=== PATIENT | female | born 1965 | race Caucasian/White ===

== ENCOUNTER → 2016-09-18 | Outpatient (CLI) | payer OTHER ==
[2016-03-13 12:40] VITALS: BP 146/78
[~2016-09-18] MED LIST: BUPR100T6 PO; LORA0.5T96 PO; SERT100T PO
--- NOTE | 2016-09-18 10:14 | RAD ---
Pelvic ultrasound, 09/18/2016: History: Postmenopausal bleeding Transabdominal and transvaginal scans were obtained. The uterus measures 8.6 x 5.2 x 4.0 cm. The central uterine echocomplex is generally thin. In the fundal region it measures 4-5 mm in greatest AP diameter. The myometrium is mildly heterogeneous. There appears to be a 1.7 cm relatively isoechoic nodule within the myometrium laterally on the right. There is a slightly hypoechoic 1.3 cm nodule seen in the myometrium posteriorly on the right. These are probably small fibroids. The ovaries are of normal size. No adnexal mass is seen. No free fluid is evident in the pelvis. IMPRESSION: 1. Two small myometrial nodules are probably fibroids. 2. The pelvic ultrasound is otherwise unremarkable.
== END | disposition home or self-care (01) ==
LOC: US 08:36
PROVIDERS: ATTEND Specialist
DX: N95.0 Postmenopausal bleeding (principal); D25.9 Leiomyoma of uterus, unspecified
CPT/HCPCS: 76830; 76856

== ENCOUNTER → 2016-11-24 | Outpatient (CLI) | payer OTHER ==
[2016-03-13 12:40] VITALS: BP 146/78
[2016-11-25 03:08] LABS: ESTRADIOL LEVEL 62.3 pg/mL (.); LUTEINIZING HORMONE 32.7 mIU/mL (.)
== END | disposition home or self-care (01) ==
LOC: LAB 15:04
PROVIDERS: ATTEND Obstetrics & Gynecology
DX: N95.0 Postmenopausal bleeding (principal)
CPT/HCPCS: 36415; 82670; 83001; 83002

== ENCOUNTER → 2017-06-02 | Outpatient (CLI) | payer OTHER ==
[2016-03-13 12:40] VITALS: BP 146/78
[~2017-06-02] MED LIST changes: -SERT100T PO; +SERT20OR PO
--- NOTE | 2017-06-02 10:40 | RAD ---
EXAM: CHEST 2 VIEWS History: Cough COMPARISON: 06/11/2015 TECHNIQUE: PA and lateral chest radiographs FINDINGS: The cardiomediastinal silhouette is within normal limits. The lungs are clear bilaterally. The costophrenic sulci are clear and well demarcated bilaterally. IMPRESSION: No radiographic evidence of an acute cardiopulmonary abnormality.
[2017-06-02 11:29] LABS: BASO % 1 % (0-3); EOS # 0.2 x10^3/uL (0.0-0.7); EOS % 5 % (0-3); HEMOGLOBIN 13.8 g/dL (12.0-15.5); LYMPH # 1.7 x10^3/uL (1.0-4.8); LYMPH % 39 % (24-48); MEAN CORPUSCULAR HEMOGLOBIN 30 pg (25-35); MEAN CORPUSCULAR HGB CONC 33 g/dL (31-37); MEAN CORPUSCULAR VOLUME 91 fL (79-100); MONO # 0.6 x10^3/uL (0.0-1.1); MONO % 13 % (0-9); NEUT # 1.9 x10^3uL (1.8-7.7); NEUT % 43 % (31-73); PLATELET COUNT 142 x10^3/uL (140-400); RED BLOOD COUNT 4.63 x10^6/uL (3.50-5.40); RED CELL DISTRIBUTION WIDTH 13.4 % (11.5-14.5); WHITE BLOOD COUNT 4.3 x10^3/uL (4.0-11.0)
[2017-06-02 11:59] LABS: INFLUENZA A PATIENT NEGATIVE (NEGATIVE); INFLUENZA B PATIENT NEGATIVE (NEGATIVE)
== END | disposition home or self-care (01) ==
LOC: LAB 10:12
PROVIDERS: ATTEND Family Medicine
DX: R50.9 Fever, unspecified (principal); R05 Cough; E03.9 Hypothyroidism, unspecified; F17.200 Nicotine dependence, unspecified, uncomplicated
CPT/HCPCS: 36415; 71046; 85025; 87804

== ENCOUNTER 2018-01-09 03:02 | Emergency (ER) | payer OTHER ==
[~2018-01-09] VITALS: Ht 165.1 cm; Wt 68.0 kg
[~2018-01-09 03:02] MED LIST changes: +SERT100T PO; -SERT20OR PO
--- NOTE | 2018-01-09 03:04 | ED.ADGEN ---
Past History Past Medical History: Anxiety, Arthritis, Depression, Hypothyroid, Other Past Surgical History: Other Alcohol Use: Occasionally Drug Use: None Adult General Chief Complaint Chief Complaint ".. Two days ago... I had onset of marked pain ... in this Rt. arm.. and hand.. 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 hand and arm. Pt. rated pain more than 8.. but took some ibuprofen and tylenol, now rates pain 4/10. Pain and discomfort has been constant the last two days. Onset was acute. No specific hx of trauma or injury. No prior similar presentation. Pt. does smoke , but is generally healthy. No recent travel. No specific ill contacts, but does work on [facility] [facility] [employer] [facility] unit. Pt. is right hand dominate. Review of past CT of cervical show multilevel DJD, Neural Foraminal narrowing and some central canal narrowing. Review of Systems Review of Systems Constitutional: Denies fever or chills [] Eyes: Denies change in visual acuity, redness, or eye pain [] HENT: Denies nasal congestion or sore throat [] Respiratory: Denies cough or shortness of breath [] Cardiovascular: No additional information not addressed in HPI [] GI: Denies abdominal pain, nausea, vomiting, bloody stools or diarrhea [] : Denies dysuria or hematuria [] Musculoskeletal: Denies back pain or joint pain []Complaints of Rt. hand and arm pain. Integument: Denies rash or skin lesions [] Neurologic: Denies headache, focal weakness or sensory changes [] Endocrine: Denies polyuria or polydipsia [] All other systems were reviewed and found to be within normal limits, except as documented in this note. Family History Family History Mother had MA age 60+ range Current Medications Current Medications Current Medications Medications (Trade) Dose Ordered Sig/Randell Start Time Stop Time Status Last Admin Dose Admin Aspirin (Selina Aspirin) 325 mg 1X ONCE 01/09/18 04:00 01/09/18 04:01 DC 01/09/18 03:56 325 MG Ketorolac Tromethamine (Toradol 30mg Vial) 30 mg 1X ONCE 01/09/18 03:30 01/09/18 03:32 DC 01/09/18 03:56 30 MG Lactated Ringer's 1,000 ml @ 1,000 mls/hr Q1H 01/09/18 03:30 01/09/18 04:29 DC 01/09/18 03:56 1,000 MLS/HR Methylprednisolone Acetate (DEPO-Medrol IM) 40 mg 1X ONCE 01/09/18 05:45 01/09/18 05:46 DC 01/09/18 05:38 40 MG Allergies Allergies Allergies Coded Allergies Type Severity Reaction Last Updated Verified No Known Drug Allergies 11/01/14 No Physical Exam Physical Exam Constitutional: Well developed, well nourished,moderately acute distress, non- toxic appearance. [] HENT: Normocephalic, atraumatic, bilateral external ears normal, oropharynx moist, no oral exudates, nose normal. [] Eyes: PERRLA, EOMI, conjunctiva normal, no discharge. [] Neck: Normal range of motion, no tenderness, supple, no stridor. [] Cardiovascular:Heart rate regular rhythm, no murmur [] Lungs & Thorax: Bilateral breath sounds equal at apex with scattered wheezes on auscultation [] Abdomen: Bowel sounds normal, soft, no tenderness, no masses, no pulsatile masses. [] Skin: Warm, dry, no erythema, no rash. [] Back: No tenderness, no CVA tenderness. [] Extremities: No tenderness, no cyanosis, no clubbing, ROM intact, no edema. [] Except finding in Rt. arm as per HPI. Pt. Nic test shows collateral artery flow to Rt. hand. No cording appreciated in Rt. arm. Neurologic: Alert and oriented X 3, normal motor function, , no focal deficits noted. DTR's 2+ Patella and brachial. Has decrease vib. 128 in Rt.hand. AC> BC with no lateralization. [] Psychologic: Affect anxious, judgement normal, mood normal. [] Current Patient Data Vital Signs Vital Signs Date Time Temp Pulse Resp B/P (MAP) Pulse Ox O2 Delivery O2 Flow Rate FiO2 01/09/18 05:00 65 19 150/96 (114) 99 Room Air 01/09/18 03:20 98.1 Lab Results Laboratory Tests Test 01/09/18 03:40 01/09/18 04:25 White Blood Count 8.3 x10^3/uL (4.0-11.0) Red Blood Count 4.55 x10^6/uL (3.50-5.40) Hemoglobin 13.6 g/dL (12.0-15.5) Hematocrit 41.0 % (36.0-47.0) Mean Corpuscular Volume 90 fL (79-100) Mean Corpuscular Hemoglobin 30 pg (25-35) Mean Corpuscular Hemoglobin Concent 33 g/dL (31-37) Red Cell Distribution Width 14.0 % (11.5-14.5) Platelet Count 175 x10^3/uL (140-400) Neutrophils (%) (Auto) 45 % (31-73) Lymphocytes (%) (Auto) 43 % (24-48) Monocytes (%) (Auto) 8 % (0-9) Eosinophils (%) (Auto) 4 % (0-3) H Basophils (%) (Auto) 1 % (0-3) Neutrophils # (Auto) 3.7 x10^3uL (1.8-7.7) Lymphocytes # (Auto) 3.5 x10^3/uL (1.0-4.8) Monocytes # (Auto) 0.6 x10^3/uL (0.0-1.1) Eosinophils # (Auto) 0.4 x10^3/uL (0.0-0.7) Basophils # (Auto) 0.1 x10^3/uL (0.0-0.2) Erythrocyte Sedimentation Rate 4 (0-25) Prothrombin Time 9.8 SEC (9.4-11.4) Prothrombin Time INR 1.0 (0.9-1.1) PTT 26 SEC (23-33) D-Dimer (Yasmin) 0.30 mg/L (0.00-0.50) Sodium Level 141 mmol/L (136-145) Potassium Level 3.6 mmol/L (3.5-5.1) Chloride Level 106 mmol/L (98-107) Carbon Dioxide Level 27 mmol/L (21-32) Anion Gap 8 (6-14) Blood Urea Nitrogen 17 mg/dL (7-20) Creatinine 0.8 mg/dL (0.6-1.0) Estimated GFR (Cockcroft-Gault) 75.3 Glucose Level 92 mg/dL (70-99) Calcium Level 8.7 mg/dL (8.5-10.1) Magnesium Level 2.1 mg/dL (1.8-2.4) Total Bilirubin 0.3 mg/dL (0.2-1.0) Direct Bilirubin 0.1 mg/dL (0.0-0.2) Aspartate Amino Transferase (AST) 20 U/L (15-37) Alanine Aminotransferase (ALT) 26 U/L (14-59) Alkaline Phosphatase 108 U/L (46-116) Creatine Kinase 104 U/L (26-192) Creatine Kinase MB (Mass) 0.9 ng/mL (0.0-3.6) Creatine Kinase MB Relative Index 0.9 % (0-4) Troponin I Quantitative < 0.017 ng/mL (0-0.055) ZV-Hda-W-Type Natriuretic Peptide 32 pg/mL (0-124) Total Protein 6.6 g/dL (6.4-8.2) Albumin 3.6 g/dL (3.4-5.0) Lipase 127 U/L (73-393) Urine Collection Type Unknown Urine Color Straw Urine Clarity Clear Urine pH 6.5 Urine Specific [place] 1.010 Urine Protein Neg (NEG-TRACE) Urine Glucose (UA) Neg mg/dL (NEG) Urine Ketones (Stick) Neg mg/dL (NEG) Urine Blood Trace (NEG) Urine Nitrite Neg (NEG) Urine Bilirubin Neg (NEG) Urine Urobilinogen Dipstick 0.2 mg/dL (0.2 mg/dL) Urine Leukocyte Esterase Trace (NEG) Urine RBC Occ /HPF (0-2) Urine WBC 1-4 /HPF (0-4) Urine Squamous Epithelial Cells Few /LPF Urine Bacteria Few /HPF (0-FEW) Urine Opiates Screen Neg (NEG) Urine Methadone Screen Neg (NEG) Urine Barbiturates Neg (NEG) Urine Phencyclidine Screen Neg (NEG) Urine Amphetamine/Methamphetamine Neg (NEG) Urine Benzodiazepines Screen Neg (NEG) Urine Cocaine Screen Neg (NEG) Urine Cannabinoids Screen Neg (NEG) Urine Ethyl Alcohol Neg (NEG) EKG EKG My interpretation of EKG shows a sinus rhythm at 64 bpm. She does have some mild leftward axis and nonspecific anterior septal changes. Findings acute STEMI of contralateral changes.[] Radiology/Procedures Radiology/Procedures My interpretation of chest x-ray shows no acute cardiopulmonary findings.[] CT of neck as compared to 2015 CT shows new multilevel degenerative changes. Most severe at C4-C7 with central canal and neural foraminal stenosis. CT of head shows no shift, mass, edema, bleed, or fracture. See formal report when available. Course & Med Decision Making Course & Med Decision Making Pertinent Labs and Imaging studies reviewed. (See chart for details). Keep follow-up with Dr. Nick. Would recommend follow-up with orthopedics or neurosurgery for evaluation of suspected cervical impingement. Take Tylenol and ibuprofen for pain. Take Vicoprofen for marked pain. Trial of Flexeril may be helpful for muscle spasms. Must follow-up. [] Final Impression Final Impression 1. Rt. Arm / hand pain and numbness x 48hrs. 2. HTN 3. Tobacco use 4. 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 DERRELL CHAMPION MD Jan 09, 2018 03:04
[2018-01-09] MEDS ORDERED: IV RINGERS SOLUTION,LACTATED 1,000 ML IV SCH (03:30)
[2018-01-09] MEDS ORDERED: KETOROLAC 30 MG/ML VIAL. IV ONE (03:30)
--- NOTE | 2018-01-09 03:32 | EKG ---
[address] [address] Test Date: 2018-01-09 Test Time: 03:28:35 Pat Name: ALEXY SHAH Department: Room: Gender: F Insurance Claims Clerk: : 1965 Requested By: DERRELL CHAMPION Order Number: [id number] Reading MD: Lyle Whitaker Measurements Intervals [place] Rate: 64 P: 49 SC: 178 QRS: -17 QRSD: 94 T: 31 QT: 416 QTc: 433 Interpretive Statements SINUS RHYTHM LEFTWARD AXIS Electronically Signed On 01-11-2018 11:14:08 CDT by Lyle Whitaker
[2018-01-09] MEDS ORDERED: ASPIRIN 325 MG TABLET PO ONE (04:00)
[2018-01-09 04:42] LABS: BASO # 0.1 x10^3/uL (0.0-0.2); BASO % 1 % (0-3); EOS # 0.4 x10^3/uL (0.0-0.7); EOS % 4 % (0-3); HEMOGLOBIN 13.6 g/dL (12.0-15.5); LYMPH # 3.5 x10^3/uL (1.0-4.8); LYMPH % 43 % (24-48); MEAN CORPUSCULAR HEMOGLOBIN 30 pg (25-35); MEAN CORPUSCULAR HGB CONC 33 g/dL (31-37); MEAN CORPUSCULAR VOLUME 90 fL (79-100); MONO # 0.6 x10^3/uL (0.0-1.1); MONO % 8 % (0-9); NEUT # 3.7 x10^3uL (1.8-7.7); NEUT % 45 % (31-73); PLATELET COUNT 175 x10^3/uL (140-400); RED BLOOD COUNT 4.55 x10^6/uL (3.50-5.40); WHITE BLOOD COUNT 8.3 x10^3/uL (4.0-11.0)
[2018-01-09 04:45] LABS: ALBUMIN 3.6 g/dL (3.4-5.0); CALCIUM 8.7 mg/dL (8.5-10.1); CREATININE 0.8 mg/dL (0.6-1.0); DIRECT BILIRUBIN 0.1 mg/dL (0.0-0.2); GFR 75.3; MAGNESIUM 2.1 mg/dL (1.8-2.4); POTASSIUM 3.6 mmol/L (3.5-5.1); TOTAL BILIRUBIN 0.3 mg/dL (0.2-1.0); TOTAL PROTEIN 6.6 g/dL (6.4-8.2)
[2018-01-09 04:58] LABS: CLARITY,URINE CLEAR; COLOR,URINE STRAW
[2018-01-09 04:59] LABS: BACTERIA,URINE FEW /HPF (0-FEW); BARBITURATES NEG (NEG); BENZODIAZEPINES NEG (NEG); BILIRUBIN,URINE NEG (NEG); CANNABINOIDS NEG (NEG); COCAINE NEG (NEG); GLUCOSE,URINE NEG (NEG); METHADONE NEG (NEG); NITRITE,URINE NEG (NEG); OPIATES NEG (NEG); PHENCYCLIDINE NEG (NEG); RBC,URINE OCC /HPF (0-2); SQUAMOUS EPITHELIAL CELL,UR FEW /LPF; UROBILINOGEN,URINE 0.2 mg/dL (0.2 mg/dL)
[2018-01-09 05:00] VITALS: BP 150/96
[2018-01-09 05:01] LABS: AMPHETAMINE/METHAMPHETAMINE NEG (NEG)
--- NOTE | 2018-01-09 05:14 | RAD ---
INDICATION: Right arm and hand numbness and pain COMPARISON: October 2014 TECHNIQUE: Axial CT images obtained through the head and cervical spine without intravenous contrast. Coronal and sagittal reformats processed of cervical spine. One or more of the following individualized dose reduction techniques were utilized for this examination: 1. Automated exposure control; 2. Adjustment of the mA and/or kV according to patient size; 3. Use of iterative reconstruction technique. FINDINGS: Head: No intracranial hemorrhage. No midline shift. Basal cisterns patents. Ventricles and sulci are within normal limits. No acute osseous abnormality. Orbits and paranasal sinuses unremarkable. Cervical: No definite acute fracture. No dislocation. No evidence of perivertebral hematoma. Grade 1 anterolisthesis of C7 on T1 and T1 on T2. IMPRESSION: 1. No acute intracranial hemorrhage. 2. No definite acute fracture or dislocation of the cervical spine. 3. Multilevel degenerative changes throughout the cervical spine with osteophyte formation at the vertebral body endplates as well as facet and uncovertebral hypertrophy contributing to multilevel central canal and neural foraminal stenosis. This appears most severe from the C4-C7 levels. If the patient has neurologic symptoms referrable to these levels it may be helpful to obtain a follow-up MRI of the cervical spine to assess for impingement of the nerve roots given that some of the regions of neural foraminal stenosis appears severe. Electronically signed by: Marcus Camara MD (01/09/2018 5:11 AM) [id number]
[2018-01-09] MEDS ORDERED: HYDR-79 PO (05:43)
[2018-01-09] MEDS ORDERED: CYCL-331 PO (05:43)
[2018-01-09] MEDS ORDERED: methylPREDNISolone ACETATE 40 MG/ML VIAL. IM ONE (05:45)
[2018-01-09 05:48] LABS: SEDIMENTATION RATE 4 (0-25)
--- NOTE | 2018-01-09 10:38 | RAD ---
Chest, 2 views, 01/09/2018: History: Right arm pain The heart size and pulmonary vascularity are normal. There is minimal linear atelectasis or scarring in the right base. The lungs are otherwise clear. There is no evidence of pleural fluid. IMPRESSION: Minimal right basilar linear atelectasis or scarring.
== END 2018-01-09 05:55 | disposition home or self-care (01) ==
LOC: ER 03:02
DX: M79.641 Pain in right hand (principal); M79.601 Pain in right arm; R20.0 Anesthesia of skin; M47.892 Other spondylosis, cervical region; I10 Essential (primary) hypertension; F41.9 Anxiety disorder, unspecified; M19.90 Unspecified osteoarthritis, unspecified site; F32.9 Major depressive disorder, single episode, unspecified; E03.9 Hypothyroidism, unspecified; Z72.0 Tobacco use
CPT/HCPCS: 36415; 70450; 71046; 72125; 80048; 80076; 80307; 81001; 82553; 83690; 83735; 83880; 84443; 84484; 85025; 85379; 85610; 85651; 85730; 87086; 93005; 96372; 96374; 99285; J1030; J1885; J7120; G0479

== ENCOUNTER → 2018-02-17 | Outpatient (CLI) | payer OTHER ==
[~2018-02-17] MED LIST changes: +CYCL-331 PO; +HYDR-79 PO
[2018-02-18 16:36] LABS: THYROXINE 4.4 ug/dL (4.5-12.0)
== END | disposition home or self-care (01) ==
LOC: LAB 15:14
PROVIDERS: ATTEND Internal Medicine
DX: R94.6 Abnormal results of thyroid function studies (principal)
CPT/HCPCS: 36415; 84436; 84439; 84480

== ENCOUNTER 2018-03-07 09:23 | Emergency (ER) | payer OTHER ==
[~2018-03-07] VITALS: Ht 165.1 cm; Wt 74.8 kg
[2018-03-07 09:30] VITALS: BP 154/95
--- NOTE | 2018-03-07 10:08 | PHYS DOC ---
Past History Past Medical History: Anxiety, Arthritis, Depression, Hypothyroid, Other Past Surgical History: Other Alcohol Use: Occasionally Drug Use: None Adult General Chief Complaint Chief Complaint: LACERATION/AVULSION HPI HPI 52-year-old female presents with chin laceration after a fall. The patient without walking her dog when another dog in the neighborhood jumped a fence and intact. Her dog went to chased the other dog away and drug the patient across the street. The patient has minor abrasions on her knees and a 1/2 cm laceration on her chin. Her chin began to bleed and she looked in the mirror realized that probably needed stitches. Patient denies loss of consciousness. She denies dizziness or headache. She is concerned about a laceration to her chin. Her tetanus is up-to-date as she got one 1 year ago. Review of Systems Review of Systems Constitutional: Denies fever or chills [] Eyes: Denies change in visual acuity, redness, or eye pain [] HENT: Denies nasal congestion or sore throat [] Respiratory: Denies cough or shortness of breath [] Cardiovascular: No additional information not addressed in HPI [] GI: Denies abdominal pain, nausea, vomiting, bloody stools or diarrhea [] : Denies dysuria or hematuria [] Musculoskeletal: Denies back pain or joint pain [] Integument: Abrasions, laceration[] Neurologic: Denies headache, focal weakness or sensory changes [] Endocrine: Denies polyuria or polydipsia [] All other systems were reviewed and found to be within normal limits, except as documented in this note. Allergies Allergies Allergies Coded Allergies Type Severity Reaction Last Updated Verified No Known Drug Allergies 11/01/14 No Physical Exam Physical Exam Constitutional: Well developed, well nourished, no acute distress, non-toxic appearance. [] HENT: Normocephalic, atraumatic, bilateral external ears normal, oropharynx moist, no oral exudates, nose normal. [] Eyes: PERRLA, EOMI, conjunctiva normal, no discharge. [] Neck: Normal range of motion, no tenderness, supple, no stridor. [] Cardiovascular:Heart rate regular rhythm, no murmur [] Lungs & Thorax: Bilateral breath sounds clear to auscultation [] Abdomen: Bowel sounds normal, soft, no tenderness, no masses, no pulsatile masses. [] Skin: Superficial abrasions to bilateral knees. 1.5 cm linear laceration to the chin[] Back: No tenderness, no CVA tenderness. [] Extremities: No tenderness, no cyanosis, no clubbing, ROM intact, no edema. [] Neurologic: Alert and oriented X 3, normal motor function, normal sensory function, no focal deficits noted. [] Psychologic: Affect normal, judgement normal, mood normal. [] EKG EKG [] Radiology/Procedures Radiology/Procedures [] Course & Med Decision Making Course & Med Decision Making Pertinent Labs and Imaging studies reviewed. (See chart for details) The patient had a laceration to her chin from her fall. I was able to repair it with sutures. See note below for more details. There were no complications. The patient's tetanus is up-to-date. She is stable for discharge at this time. [] Dragon Disclaimer Dragon Disclaimer This electronic medical record was generated, in whole or in part, using a voice recognition dictation system. Laceration Repair Lac Repair Indication: [1/2 cm linear laceration of the chin] Procedure: Verbal consent was obtained from the patient for suture repair of her chin. Wound was cleansed with saline under pressure. No foreign objects were found. The skin was anesthetized with 1% lidocaine. A total of 1.5 mL was used. I repaired the laceration was 2 interrupted 5-0 Ethilon sutures. There was good skin approximation. Hemostasis was achieved. Total repaired wound length: 1.5 cm. Other Items: None The patient tolerated the procedure well Complications: None. Departure Departure: Referrals: JAZ GAMEZ MD (PCP) MAUREEN BOURNE DO Mar 07, 2018 10:08
== END 2018-03-07 10:20 | disposition home or self-care (01) ==
LOC: ER 09:23
DX: S01.81XA Laceration without foreign body of other part of head, initial encounter (principal); S80.212A Abrasion, left knee, initial encounter; S80.211A Abrasion, right knee, initial encounter; F41.9 Anxiety disorder, unspecified; M19.90 Unspecified osteoarthritis, unspecified site; F32.9 Major depressive disorder, single episode, unspecified; E03.9 Hypothyroidism, unspecified; W18.30XA Fall on same level, unspecified, initial encounter; Y93.K1 Activity, walking an animal; Y92.89 Other specified places as the place of occurrence of the external cause; Y99.8 Other external cause status
CPT/HCPCS: 12011; 99283

== ENCOUNTER → 2018-04-22 | Outpatient (CLI) | payer OTHER ==
[~2018-04-22] MED LIST changes: +HYDR-1179 PO; -HYDR-79 PO
[2018-04-22 18:06] LABS: FREE T4 1.01 ng/dL (0.76-1.46); THYROID STIM HORMONE (TSH) 0.654 uIU/mL (0.358-3.740)
== END | disposition home or self-care (01) ==
LOC: LAB 11:24
PROVIDERS: ATTEND Psychiatry & Neurology Psychiatry
DX: E03.9 Hypothyroidism, unspecified (principal)
CPT/HCPCS: 84439; 84443; 84481

== ENCOUNTER → 2018-04-30 | Outpatient (CLI) | payer OTHER ==
[2018-04-30 14:53] LABS: BASO % 1 % (0-3); EOS # 0.1 x10^3/uL (0.0-0.7); EOS % 1 % (0-3); HEMATOCRIT 40.5 % (36.0-47.0); HEMOGLOBIN 13.1 g/dL (12.0-15.5); LYMPH # 1.6 x10^3/uL (1.0-4.8); LYMPH % 29 % (24-48); MEAN CORPUSCULAR HEMOGLOBIN 30 pg (25-35); MEAN CORPUSCULAR HGB CONC 32 g/dL (31-37); MEAN CORPUSCULAR VOLUME 92 fL (79-100); MONO # 0.6 x10^3/uL (0.0-1.1); MONO % 12 % (0-9); NEUT # 3.1 x10^3uL (1.8-7.7); NEUT % 58 % (31-73); PLATELET COUNT 186 x10^3/uL (140-400); RED BLOOD COUNT 4.42 x10^6/uL (3.50-5.40); WHITE BLOOD COUNT 5.4 x10^3/uL (4.0-11.0)
[2018-04-30 14:59] LABS: ALBUMIN 3.3 g/dL (3.4-5.0); ALBUMIN/GLOBULIN RATIO 1.1 (1.0-1.7); CREATININE 0.9 mg/dL (0.6-1.0); GFR 65.8; POTASSIUM 3.9 mmol/L (3.5-5.1); TOTAL BILIRUBIN 0.3 mg/dL (0.2-1.0); TOTAL PROTEIN 6.4 g/dL (6.4-8.2)
--- NOTE | 2018-04-30 17:12 | RAD ---
ABDOMEN LTD History: Right upper quadrant pain Comparison: No FINDINGS: Multiple sonographic images of the abdomen are submitted. There is no abnormality of the visualized pancreas. No focal abnormality is demonstrated of the liver. Hepatic echotexture is within normal limits. Gallbladder is present without intraluminal abnormality, wall thickening, pericholecystic fluid. Right kidney measured 10.2 x 4.4 x 4.1 cm, no hydronephrosis. Common bile duct is within normal limits at 0.5 cm. There is segmental visualization of the inferior vena cava. Impression: 1. No significant abnormality is demonstrated. Electronically signed by: Carter Dawn MD (04/30/2018 5:08 PM) [id number]
== END | disposition home or self-care (01) ==
LOC: LAB 14:03
PROVIDERS: ATTEND Internal Medicine
DX: R10.11 Right upper quadrant pain (principal)
CPT/HCPCS: 36415; 76705; 80053; 83690; 85025

== ENCOUNTER → 2018-10-13 | Outpatient (CLI) | payer OTHER ==
--- NOTE | 2018-10-13 16:43 | RAD ---
Cervical spine, 3 views, 10/13/2018: HISTORY: Postop cervical fusion An anterior fixation plate is present attached to the C4, C5 and C6 vertebral bodies via 2 screws at each level. There are partially radiopaque disc spacers at C4-5 and C5-6. The vertebral alignment through this region appears normal. There are moderate scattered posterior marginal spurs. There are moderate degenerative changes involving the facet joints bilaterally at multiple levels. There appears to be fusion of the facet joints at C3-4. No recent fracture or subluxation is evident. IMPRESSION: 1. Status post anterior spinal fusion and instrumentation from C4 through C6. 2. Moderate multilevel degenerative change. 3. No acute bony abnormality is detected. Electronically signed by: Iron Clarke MD (10/13/2018 4:40 PM) [facility]
== END | disposition home or self-care (01) ==
LOC: DXRAD 15:41
PROVIDERS: ATTEND Neurological Surgery
DX: M47.812 Spondylosis without myelopathy or radiculopathy, cervical region (principal); M46.02 Spinal enthesopathy, cervical region; Z98.1 Arthrodesis status
CPT/HCPCS: 72040

== ENCOUNTER → 2018-11-03 | Outpatient (CLI) | payer OTHER ==
[2018-11-04 18:18] LABS: FREE T4 0.68 ng/dL (0.76-1.46); THYROID STIM HORMONE (TSH) 1.304 uIU/mL (0.358-3.740)
== END | disposition home or self-care (01) ==
LOC: LAB 15:22
PROVIDERS: ATTEND Psychiatry & Neurology Psychiatry
DX: E03.9 Hypothyroidism, unspecified (principal)
CPT/HCPCS: 84439; 84443; 84481

== ENCOUNTER 2018-12-13 03:40 | Emergency (ER) | payer OTHER ==
[~2018-12-13] VITALS: Ht 165.1 cm; Wt 74.8 kg
[2018-12-13 03:40] VITALS: BP 149/86
--- NOTE | 2018-12-13 03:47 | ED.ADGEN ---
Past History Past Medical History: Anxiety, Arthritis, Depression, Hypertension, Hypothyroid, Other Past Surgical History: Other Alcohol Use: Occasionally Drug Use: None Adult General Chief Complaint Chief Complaint " ..I hurt my elbow...".." about two weeks ago .. in handling a patient... my elbow is still sore..." [facility] HPI Patient is a 53 year old female who presents with above hx and complaints contusion to Rt. forearm 2 weeks ago while working on the [employer] unit. Patient states contusion was 2 mid forearm on right. Distal neurovascular is intact. Pain seems to be located now in the elbow. No pain with pronation or supination. Pain is only with straightening of elbow. Patient is right-hand dominant. Capillary refill in right hand is equal to Her refill and left hand. Review of Systems Review of Systems Constitutional: Denies fever or chills [] Eyes: Denies change in visual acuity, redness, or eye pain [] HENT: Denies nasal congestion or sore throat [] Respiratory: Denies cough or shortness of breath [] Cardiovascular: No additional information not addressed in HPI [] GI: Denies abdominal pain, nausea, vomiting, bloody stools or diarrhea [] : Denies dysuria or hematuria [] Musculoskeletal: Denies back pain or joint pain []except findings of an history contusion to right elbow Integument: Denies rash or skin lesions [] Neurologic: Denies headache, focal weakness or sensory changes [] Endocrine: Denies polyuria or polydipsia [] All other systems were reviewed and found to be within normal limits, except as documented in this note. Family History Family History Noncontributory Current Medications Current Medications See nursing for home meds Allergies Allergies Allergies Coded Allergies Type Severity Reaction Last Updated Verified No Known Drug Allergies 11/01/14 No Physical Exam Physical Exam Constitutional: , no acute distress, non-toxic appearance. [] HENT: Normocephalic, atraumatic, bilateral external ears normal, oropharynx moist, no oral exudates, nose normal. [] Eyes: PERRLA, EOMI, conjunctiva normal, no discharge. [] Neck: Normal range of motion, no tenderness, supple, no stridor. Neck scar recent cervical surgery Cardiovascular:Heart rate regular rhythm, no murmur [] Lungs & Thorax: Bilateral breath sounds equal at apex auscultation [] Abdomen: Bowel sounds normal, soft, no tenderness, no masses, no pulsatile masses. [] Skin: Warm, dry, no erythema, no rash. [] Back: No tenderness, no CVA tenderness. [] Extremities: No tenderness, no cyanosis, no clubbing, ROM intact, no edema. [] Except tenderness right elbow as per history of present illness Neurologic: Alert and oriented X 3, normal motor function, normal sensory function, no focal deficits noted. [] Psychologic: Affect anxious, judgement normal, mood normal. [] Current Patient Data Vital Signs Vital Signs Date Time Temp Pulse Resp B/P (MAP) Pulse Ox O2 Delivery O2 Flow Rate FiO2 12/13/18 03:40 98.1 76 18 97 Room Air EKG EKG [] Radiology/Procedures Radiology/Procedures My interpretation of right elbow film shows no obvious dislocation or displacement fracture. [][place] [address] IMAGING REPORT Signed PATIENT: ALEXY SHAH IACCOUNT: [id number] : 1965 LOCATION: ER AGE: 53 SEX: F EXAM STATUS: DEP ER ORD. PHYSICIAN: DERRELL CHAMPION MD REASON: Injury, right elbow pain PROCEDURE: ELBOW RIGHT 3V EXAM: RIGHT ELBOW 3 VIEWS. HISTORY: Right elbow pain after injury. COMPARISON: None. FINDINGS: No fractures are identified. Joint spaces and alignment are maintained. There is no joint effusion. IMPRESSION: 1. No fracture or joint effusion. Electronically signed by: Kristopher De La Rosa MD (12/13/2018 4:56 AM) [id number] DICTATED AND SIGNED BY: ANA M DE LA ROSA MD DATE: 12/13/18 0456 CC: DERRELL CHAMPION MD; JAZ GAMEZ MD ~ Course & Med Decision Making Course & Med Decision Making Pertinent Labs and Imaging studies reviewed. (See chart for details). Follow- up work comp. Wear Aries wrap. Take Tylenol for pain. (Unable to take anti- inflammatories because of recent neck surgery) [] Final Impression Final Impression 1. Contusion 2. Sprain / Strain[] Dragon Disclaimer Dragon Disclaimer This electronic medical record was generated, in whole or in part, using a voice recognition dictation system. Dragon Disclaimer This chart was dictated in whole or in part using Voice Recognition software in a busy, high-work load, and often noisy Emergency Department environment. It may contain unintended and wholly unrecognized errors or omissions. DERRELL CHAMPION MD Dec 13, 2018 03:47
--- NOTE | 2018-12-13 04:59 | RAD ---
EXAM: RIGHT ELBOW 3 VIEWS. HISTORY: Right elbow pain after injury. COMPARISON: None. FINDINGS: No fractures are identified. Joint spaces and alignment are maintained. There is no joint effusion. IMPRESSION: 1. No fracture or joint effusion. Electronically signed by: Kristopher De La Rosa MD (12/13/2018 4:56 AM) [id number]
== END 2018-12-13 04:45 | disposition home or self-care (01) ==
LOC: ER 03:40
DX: S50.01XA Contusion of right elbow, initial encounter (principal); M19.90 Unspecified osteoarthritis, unspecified site; I10 Essential (primary) hypertension; E03.9 Hypothyroidism, unspecified; X58.XXXA Exposure to other specified factors, initial encounter; Y93.89 Activity, other specified; Y92.89 Other specified places as the place of occurrence of the external cause; Y99.8 Other external cause status
CPT/HCPCS: 73080; 99284

== ENCOUNTER → 2019-01-24 | Outpatient (CLI) | payer OTHER ==
[2019-01-24 11:42] LABS: BASO # 0.1 x10^3/uL (0.0-0.2); BASO % 1 % (0-3); EOS # 0.2 x10^3/uL (0.0-0.7); EOS % 4 % (0-3); HEMATOCRIT 42.3 % (36.0-47.0); HEMOGLOBIN 13.7 g/dL (12.0-15.5); LYMPH # 1.7 x10^3/uL (1.0-4.8); LYMPH % 31 % (24-48); MEAN CORPUSCULAR HEMOGLOBIN 29 pg (25-35); MEAN CORPUSCULAR HGB CONC 33 g/dL (31-37); MEAN CORPUSCULAR VOLUME 89 fL (79-100); MONO # 0.6 x10^3/uL (0.0-1.1); MONO % 12 % (0-9); NEUT # 2.9 x10^3uL (1.8-7.7); NEUT % 53 % (31-73); PLATELET COUNT 211 x10^3/uL (140-400); RED BLOOD COUNT 4.76 x10^6/uL (3.50-5.40); RED CELL DISTRIBUTION WIDTH 14.1 % (11.5-14.5); WHITE BLOOD COUNT 5.5 x10^3/uL (4.0-11.0)
[2019-01-24 11:48] LABS: ALBUMIN/GLOBULIN RATIO 1.2 (1.0-1.7); CALCIUM 9.3 mg/dL (8.5-10.1); CREATININE 0.9 mg/dL (0.6-1.0); GFR 65.5; POTASSIUM 3.7 mmol/L (3.5-5.1); TOTAL BILIRUBIN 0.3 mg/dL (0.2-1.0); TOTAL PROTEIN 7.3 g/dL (6.4-8.2)
[2019-01-24 14:22] LABS: THYROID STIM HORMONE (TSH) 1.228 uIU/mL (0.358-3.740)
== END | disposition home or self-care (01) ==
LOC: PMG 10:44
PROVIDERS: ATTEND Registered Nurse
DX: Z13.6 Encounter for screening for cardiovascular disorders (principal); I10 Essential (primary) hypertension; E03.9 Hypothyroidism, unspecified
CPT/HCPCS: 36415; 80053; 80061; 84439; 84443; 84481; 85025

== ENCOUNTER → 2019-04-29 | Outpatient (CLI) | payer OTHER ==
--- NOTE | 2019-04-29 17:34 | RAD ---
Examination: WRIST 2V LEFT History: Pain Comparison/Correlation: None Findings: Total 2 images of the left wrist were obtained. Advanced first carpometacarpal joint degenerative narrowing and spurring noted. Narrowing of the second metacarpal-trapezoid articulation noted. No fracture or bone destruction. Impression: Advanced degenerative change involving first and second carpometacarpal joints. Consider further imaging or neuroforaminal if occult process involving the scaphoid bone is of concern. Electronically signed by: Daniel Ron MD (04/29/2019 5:31 PM) [facility]
== END | disposition home or self-care (01) ==
LOC: DXRAD 15:51
PROVIDERS: ATTEND Registered Nurse
DX: M18.12 Unilateral primary osteoarthritis of first carpometacarpal joint, left hand (principal)
CPT/HCPCS: 73100

== ENCOUNTER → 2019-06-24 | Outpatient (CLI) | payer OTHER ==
[2019-06-25 05:07] LABS: DHEA SO4 61.3 ug/dL (41.2-243.7); ESTRADIOL LEVEL <5.0 pg/mL (.); FSH 151.6 mIU/mL (.); LUTEINIZING HORMONE 67.7 mIU/mL (.); PROGESTERONE <0.1 ng/mL (.); TESTOSTERONE TOTAL <3 ng/dL (3-41)
[2019-06-27 12:07] LABS: ESTROGEN LEVEL 92 pg/mL (.)
== END | disposition home or self-care (01) ==
LOC: LAB 13:31
PROVIDERS: ATTEND Registered Nurse
DX: R26.2 Difficulty in walking, not elsewhere classified (principal)
CPT/HCPCS: 36415; 82627; 82670; 82672; 83001; 83002; 84144; 84403; 84443

== ENCOUNTER 2019-08-31 13:30 | Emergency (ER) | payer OTHER ==
[~2019-08-31] VITALS: Ht 165.1 cm; Wt 69.5 kg
[2019-08-31] MEDS ORDERED: IV NORMAL SALINE 1,000ML 1,000 ML IV SCH (13:41)
[2019-08-31] MEDS ORDERED: ASPIRIN CHEWABLE 81 MG TABLET. PO ONE (13:45)
[2019-08-31 13:58] LABS: BASO % 1 % (0-3); EOS # 0.2 x10^3/uL (0.0-0.7); EOS % 3 % (0-3); HEMATOCRIT 40.1 % (36.0-47.0); LYMPH # 1.6 x10^3/uL (1.0-4.8); LYMPH % 26 % (24-48); MEAN CORPUSCULAR HEMOGLOBIN 29 pg (25-35); MEAN CORPUSCULAR HGB CONC 32 g/dL (31-37); MEAN CORPUSCULAR VOLUME 89 fL (79-100); MONO # 0.5 x10^3/uL (0.0-1.1); MONO % 8 % (0-9); NEUT # 3.9 x10^3uL (1.8-7.7); NEUT % 63 % (31-73); PLATELET COUNT 196 x10^3/uL (140-400); RED BLOOD COUNT 4.51 x10^6/uL (3.50-5.40); RED CELL DISTRIBUTION WIDTH 14.2 % (11.5-14.5); WHITE BLOOD COUNT 6.2 x10^3/uL (4.0-11.0)
[2019-08-31 14:04] LABS: CREATININE 0.7 mg/dL (0.6-1.0); GFR 87.5; POTASSIUM 3.6 mmol/L (3.5-5.1)
--- NOTE | 2019-08-31 14:06 | RAD ---
PORTABLE CHEST 1V History: Chest pain Comparison: June 02, 2017 Findings: No consolidation or pleural effusion. Normal heart size. No pneumothorax. Postop changes lower cervical spine. Impression: 1. No acute cardiopulmonary process. Electronically signed by: Etienne Wallace DO (08/31/2019 2:03 PM) [id number]
--- NOTE | 2019-08-31 14:18 | EKG ---
[address] [address] Test Date: 2019-08-31 Test Time: 13:41:26 Pat Name: ALEXY SHAH Department: Room: Gender: F [employer]: : 1965 Requested By: CHERYL ALFARO Order Number: [id number] Reading MD: Otis Garcia MD Measurements Intervals [place] Rate: 94 P: 45 [place]: 146 QRS: -8 QRSD: 102 T: 51 QT: 370 QTc: 463 Interpretive Statements SINUS RHYTHM NON-SPECIFIC ST/T CHANGES Electronically Signed On 09-01-2019 12:01:41 CDT by Otis Garcia MD
[2019-08-31 14:20] LABS: ALBUMIN/GLOBULIN RATIO 1.4 (1.0-1.7); TOTAL BILIRUBIN 0.3 mg/dL (0.2-1.0); TOTAL PROTEIN 6.8 g/dL (6.4-8.2)
--- NOTE | 2019-08-31 14:20 | PHYS DOC ---
Past History Past Medical History: Anxiety, Arthritis, Depression, Hypertension, Hypothyroid, Other Past Surgical History: Other Alcohol Use: Occasionally Drug Use: None General Adult EDM: Chief Complaint: CHEST PAIN HPI: HPI: Patient is a 53 year old female who presents with complaint of chest pain and shortness of breath. The patient states that her symptoms started suddenly. 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 She states while on rounds she started to feel difficulty breathing. This happened suddenly. She states that she started to become lightheaded and dizzy when this occurred. Notes that she is still feeling shortness of breath and feeling tightness currently in her chest. She denies pain but does admit that the chest tightness feels in the middle of her chest. No history of similar symptoms. Does have history of hypertension but no known history of cardiac disease. Family history positive for coronary artery disease in mother. Has not taken any medications since onset. Takes amlodipine for blood pressure. Has not missed any doses. Review of Systems: Review of Systems: Constitutional: Denies fever or chills Eyes: Denies change in visual acuity HENT: Denies nasal congestion or sore throat Respiratory: Shortness of breath Cardiovascular: Chest pressure GI: Denies abdominal pain, nausea, vomiting, bloody stools or diarrhea : Denies dysuria Musculoskeletal: Denies back pain or joint pain Integument: Denies rash Neurologic: Dizziness and lightheadedness, denies focal weakness Endocrine: Denies polyuria or polydipsia Lymphatic: Denies swollen glands Heart Score: HEART Score for Chest Pain: HEART Score for Chest Pain Response (Comments) Value History Slighlty/Non-Suspicious 0 ECG Normal 0 Age >45 - < 65 1 Risk Factors 1 or 2 Risk Factors 1 Troponin < Normal Limit 0 Total 2 Risk Factors: Risk Factors: DM, Current or recent (<one month) smoker, HTN, HLP, family history of CAD, obesity. Risk Scores: Score 0 - 3: 2.5% MACE over next 6 weeks - Discharge Home Score 4 - 6: 20.3% MACE over next 6 weeks - Admit for Clinical Observation Score 7 - 10: 72.7% MACE over next 6 weeks - Early Invasive Strategies Current Medications: Current Meds: Current Medications Medications (Trade) Dose Ordered Sig/Randell Start Time Stop Time Status Last Admin Dose Admin Aspirin (Aspirin Chewable) 324 mg 1X ONCE 08/31/19 13:45 08/31/19 13:51 DC 08/31/19 13:50 324 MG Lorazepam (Ativan Inj) 1 mg 1X ONCE 08/31/19 14:15 08/31/19 14:16 Sodium Chloride 1,000 ml @ 1,000 mls/hr Q1H 08/31/19 13:41 08/31/19 14:40 08/31/19 13:50 1,000 MLS/HR Allergies: Allergies: Allergies Coded Allergies Type Severity Reaction Last Updated Verified No Known Drug Allergies 11/01/14 No Physical Exam: PE: Constitutional: Alert, afebrile, appears anxious. [] HENT: Normocephalic, atraumatic, bilateral external ears normal, oropharynx moist, no oral exudates, nose normal. [] Eyes: PERRLA, EOMI, conjunctiva normal, no discharge. [] Neck: Normal range of motion, no tenderness, supple, no stridor. [] Cardiovascular: Tachycardia, regular rhythm, no murmur [] Lungs & Thorax: Bilateral breath sounds clear to auscultation [] Abdomen: Bowel sounds normal, soft, no tenderness, no masses, no pulsatile masses. [] Skin: Warm, dry, no erythema, no rash. [] Back: No tenderness, no CVA tenderness. [] Extremities: No tenderness, no cyanosis, no clubbing, ROM intact, no edema. [] Neurologic: Alert and oriented X 3, normal motor function, normal sensory function, no focal deficits noted. [] Current Patient Data: Labs: Laboratory Tests Test 08/31/19 13:42 08/31/19 15:58 White Blood Count 6.2 x10^3/uL Red Blood Count 4.51 x10^6/uL Hemoglobin 13.0 g/dL Hematocrit 40.1 % Mean Corpuscular Volume 89 fL Mean Corpuscular Hemoglobin 29 pg Mean Corpuscular Hemoglobin Concent 32 g/dL Red Cell Distribution Width 14.2 % Platelet Count 196 x10^3/uL Neutrophils (%) (Auto) 63 % Lymphocytes (%) (Auto) 26 % Monocytes (%) (Auto) 8 % Eosinophils (%) (Auto) 3 % Basophils (%) (Auto) 1 % Neutrophils # (Auto) 3.9 x10^3uL Lymphocytes # (Auto) 1.6 x10^3/uL Monocytes # (Auto) 0.5 x10^3/uL Eosinophils # (Auto) 0.2 x10^3/uL Basophils # (Auto) 0.0 x10^3/uL Sodium Level 140 mmol/L Potassium Level 3.6 mmol/L Chloride Level 101 mmol/L Carbon Dioxide Level 26 mmol/L Anion Gap 13 Blood Urea Nitrogen 12 mg/dL Creatinine 0.7 mg/dL Estimated GFR (Cockcroft-Gault) 87.5 BUN/Creatinine Ratio 17 Glucose Level 132 mg/dL Calcium Level 9.0 mg/dL Magnesium Level 2.0 mg/dL Total Bilirubin 0.3 mg/dL Aspartate Amino Transf (AST/SGOT) 27 U/L Alanine Aminotransferase (ALT/SGPT) 35 U/L Alkaline Phosphatase 134 U/L Creatine Kinase 87 U/L Creatine Kinase MB (Mass) 0.9 ng/mL Creatine Kinase MB Relative Index 1.0 % Troponin I Quantitative < 0.017 ng/mL < 0.017 ng/mL Total Protein 6.8 g/dL Albumin 4.0 g/dL Albumin/Globulin Ratio 1.4 Current Medications Medications (Trade) Dose Ordered Sig/Randell Route PRN Reason Start Time Stop Time Status Last Admin Dose Admin Aspirin (Aspirin Chewable) 324 mg 1X ONCE PO 08/31/19 13:45 08/31/19 13:51 DC 08/31/19 13:50 Sodium Chloride 1,000 ml @ 1,000 mls/hr Q1H IV 08/31/19 13:41 08/31/19 14:40 DC 08/31/19 13:50 Lorazepam (Ativan Inj) 1 mg 1X ONCE IVP 08/31/19 14:15 08/31/19 14:16 DC 08/31/19 14:15 Vital Signs: Vital Signs Date Time Temp Pulse Resp B/P (MAP) Pulse Ox O2 Delivery O2 Flow Rate FiO2 08/31/19 13:40 98.4 92 18 179/94 (122) 98 Room Air EKG: EKG: EKG #1 interpreted by me at 1341: Heart rate 94, sinus rhythm, leftward axis, incomplete right bundle branch block, no acute ST elevations or depressions EKG #2 interpreted by me at 1602: Heart rate 81, sinus rhythm, leftward axis, no acute changes compared to EKG #1. [] Radiology/Procedures: Radiology/Procedures: [address] [address] IMAGING REPORT Signed PATIENT: ALEXY SHAH IACCOUNT: [id number] : 1965 LOCATION: ER AGE: 53 SEX: F EXAM STATUS: REG ER ORD. PHYSICIAN: CHERYL ALFARO MD REASON: chest pain PROCEDURE: PORTABLE CHEST 1V PORTABLE CHEST 1V History: Chest pain Comparison: June 02, 2017 Findings: No consolidation or pleural effusion. Normal heart size. No pneumothorax. Postop changes lower cervical spine. Impression: 1. No acute cardiopulmonary process. Electronically signed by: Etienne Wallace DO (08/31/2019 2:03 PM) [id number] DICTATED AND SIGNED BY: ETIENNE WALLACE DO DATE: 08/31/19 1403 CC: CHERYL ALFARO MD; [facility] [employer] DISPLAY SCREEN FABRICATOR-C ~ [] Course & Med Decision Making: Course & Med Decision Making Pertinent Labs and Imaging studies reviewed. (See chart for details) Patient was administered 324 mg of aspirin. Patient was noted to be tearful and appeared anxious. Initial EKG shows no evidence of ischemic changes. After speaking with the patient, we agreed to trial a dose of Ativan to help with the patient's shakiness. She notes significant improvement in symptoms after administration of Ativan. 2 sets of troponins were drawn in the emergency department with no elevation. Patient remained chest pain-free after admi nistration of Ativan and states she feels much better at this time. Heart score is 2, placing patient in low risk category for major acute cardiac event. The patient is appropriate for discharge with outpatient follow-up in the next 2 to 3 days with cardiology for reevaluation. Referred to Dr. Garcia of cardiology for follow-up. Advised return to the emergency department for any worsening symptoms. Patient voiced understanding and agreement with treatment plan. PPE: N95 mask, gloves, and eye protection were used during patient encounter. [] Dragon Disclaimer: Dragon Disclaimer: This electronic medical record was generated, in whole or in part, using a voice recognition dictation system. Departure Departure: Impression: Primary Impression: Chest pain Qualified Codes: R07.9 - Chest pain, unspecified Additional Impression: Shortness of breath Disposition: HOME, SELF-CARE Condition: IMPROVED Referrals: [facility] DIS[employer] SCREEN FABRICATOR-C (PCP) DARREN GARCIA MD Patient Instructions: Chest Pain (Nonspecific) Additional Instructions: Follow-up with Dr. Garcia in the next 2 to 3 days for reevaluation. Return to the emergency department for any worsening symptoms. CHERYL ALFARO MD August 31, 2019 14:20
[2019-08-31 14:39] VITALS: BP 147/94
--- NOTE | 2019-08-31 17:25 | EKG ---
[address] [address] Test Date: 2019-08-31 Test Time: 16:02:08 Pat Name: ALEXY SHAH Department: Room: Gender: F [employer] Teacher: : 1965 Requested By: CHERYL ALFARO Order Number: [id number] Reading MD: Otis Garcia MD Measurements Intervals Hyder Rate: 81 P: 53 OH: 158 QRS: -4 QRSD: 94 T: 36 QT: 402 QTc: 467 Interpretive Statements SINUS RHYTHM Electronically Signed On 09-01-2019 12:02:09 CDT by Otis Garcia MD
== END 2019-08-31 17:00 | disposition home or self-care (01) ==
LOC: ER 13:30
DX: R07.89 Other chest pain (principal); R06.02 Shortness of breath; R42 Dizziness and giddiness; F41.9 Anxiety disorder, unspecified; M19.90 Unspecified osteoarthritis, unspecified site; F32.9 Major depressive disorder, single episode, unspecified; I10 Essential (primary) hypertension; E03.9 Hypothyroidism, unspecified; Z98.890 Other specified postprocedural states
CPT/HCPCS: 36415; 71045; 80053; 82553; 83735; 84484; 85025; 93005; 96361; 96374; 99285; J2060; J7030

== ENCOUNTER → 2019-09-08 | Outpatient (CLI) | payer OTHER ==
[2019-08-31 14:39] VITALS: BP 147/94
[2019-09-08 09:42] LABS: BASO # 0.1 x10^3/uL (0.0-0.2); BASO % 1 % (0-3); EOS # 0.2 x10^3/uL (0.0-0.7); EOS % 3 % (0-3); HEMATOCRIT 44.4 % (36.0-47.0); HEMOGLOBIN 14.1 g/dL (12.0-15.5); LYMPH # 1.4 x10^3/uL (1.0-4.8); LYMPH % 23 % (24-48); MEAN CORPUSCULAR HEMOGLOBIN 29 pg (25-35); MEAN CORPUSCULAR HGB CONC 32 g/dL (31-37); MEAN CORPUSCULAR VOLUME 90 fL (79-100); MONO # 0.5 x10^3/uL (0.0-1.1); MONO % 9 % (0-9); NEUT # 4.2 x10^3uL (1.8-7.7); NEUT % 66 % (31-73); PLATELET COUNT 194 x10^3/uL (140-400); RED BLOOD COUNT 4.91 x10^6/uL (3.50-5.40); RED CELL DISTRIBUTION WIDTH 14.3 % (11.5-14.5); WHITE BLOOD COUNT 6.4 x10^3/uL (4.0-11.0)
[2019-09-08 10:04] LABS: ALBUMIN 3.9 g/dL (3.4-5.0); ALBUMIN/GLOBULIN RATIO 1.2 (1.0-1.7); CREATININE 0.8 mg/dL (0.6-1.0); POTASSIUM 3.8 mmol/L (3.5-5.1); TOTAL BILIRUBIN 0.3 mg/dL (0.2-1.0); TOTAL PROTEIN 7.1 g/dL (6.4-8.2)
[2019-09-08 10:20] LABS: PLT ESTIMATE ADEQUATE (ADEQUATE)
[2019-09-08 16:52] LABS: FREE T4 1.12 ng/dL (0.76-1.46); THYROID STIM HORMONE (TSH) 1.225 uIU/mL (0.358-3.740)
[2019-09-09 01:07] LABS: HEMOGLOBIN A1C 5.5 % (4.8-5.6)
== END ==
LOC: LAB 08:32
PROVIDERS: ATTEND Physician Assistant Medical
DX: R51 Headache (principal); E03.9 Hypothyroidism, unspecified; R73.09 Other abnormal glucose; I10 Essential (primary) hypertension
CPT/HCPCS: 36415; 80053; 80061; 83036; 84439; 84443; 84480; 85025

== ENCOUNTER → 2019-11-10 | Outpatient (CLI) | payer OTHER ==
[~2019-11-10] MED LIST changes: +LORA0.5T21 PO; -LORA0.5T96 PO
== END ==
LOC: LAB 12:59
PROVIDERS: ATTEND Internal Medicine Cardiovascular Disease
DX: Z20.828 Contact with and (suspected) exposure to other viral communicable diseases (principal)
CPT/HCPCS: 36415; U0003-CS

== ENCOUNTER → 2019-11-17 | Outpatient (CLI) | payer OTHER | END | disposition home or self-care (01) | LOC: LAB 04:39 | PROVIDERS: ATTEND Internal Medicine Cardiovascular Disease | DX: Z20.828 Contact with and (suspected) exposure to other viral communicable diseases (principal) | CPT/HCPCS: C9803; U0003; 36415 ==

== ENCOUNTER → 2019-11-23 | Outpatient (CLI) | payer OTHER | END | disposition home or self-care (01) | LOC: LAB 06:47 | PROVIDERS: ATTEND Internal Medicine Cardiovascular Disease | DX: Z20.828 Contact with and (suspected) exposure to other viral communicable diseases (principal) | CPT/HCPCS: C9803; U0003; 36415 ==

== ENCOUNTER → 2019-12-29 | Outpatient (CLI) | payer OTHER | END | disposition home or self-care (01) | LOC: LAB 06:06 | PROVIDERS: ATTEND Internal Medicine Cardiovascular Disease | DX: Z20.828 Contact with and (suspected) exposure to other viral communicable diseases (principal) | CPT/HCPCS: U0003-CS ==

== ENCOUNTER → 2020-01-06 | Outpatient (CLI) | payer OTHER ==
[2020-01-06 10:26] LABS: BASO % 1 % (0-3); EOS # 0.2 x10^3/uL (0.0-0.7); EOS % 3 % (0-3); HEMATOCRIT 45.9 % (36.0-47.0); HEMOGLOBIN 14.8 g/dL (12.0-15.5); LYMPH # 1.5 x10^3/uL (1.0-4.8); LYMPH % 28 % (24-48); MEAN CORPUSCULAR HEMOGLOBIN 30 pg (25-35); MEAN CORPUSCULAR HGB CONC 32 g/dL (31-37); MEAN CORPUSCULAR VOLUME 91 fL (79-100); MONO # 0.5 x10^3/uL (0.0-1.1); MONO % 9 % (0-9); NEUT # 3.1 x10^3uL (1.8-7.7); NEUT % 59 % (31-73); PLATELET COUNT 195 x10^3/uL (140-400); RED BLOOD COUNT 5.02 x10^6/uL (3.50-5.40); RED CELL DISTRIBUTION WIDTH 13.6 % (11.5-14.5); WHITE BLOOD COUNT 5.2 x10^3/uL (4.0-11.0)
[2020-01-06 10:33] LABS: ALBUMIN 4.3 g/dL (3.4-5.0); ALBUMIN/GLOBULIN RATIO 1.3 (1.0-1.7); CALCIUM 9.4 mg/dL (8.5-10.1); CREATININE 0.9 mg/dL (0.6-1.0); GFR 65.2; POTASSIUM 3.6 mmol/L (3.5-5.1); TOTAL BILIRUBIN 0.5 mg/dL (0.2-1.0); TOTAL PROTEIN 7.6 g/dL (6.4-8.2)
[2020-01-06 14:18] LABS: FREE T4 0.97 ng/dL (0.76-1.46); THYROID STIM HORMONE (TSH) 1.095 uIU/mL (0.358-3.740)
[2020-01-07 00:07] LABS: HEMOGLOBIN A1C 5.5 % (4.8-5.6)
== END | disposition home or self-care (01) ==
LOC: LAB 09:05
PROVIDERS: ATTEND Physician Assistant Medical
DX: R44.3 Hallucinations, unspecified (principal); R73.9 Hyperglycemia, unspecified; E03.9 Hypothyroidism, unspecified; R53.83 Other fatigue; E55.9 Vitamin D deficiency, unspecified; E78.5 Hyperlipidemia, unspecified
CPT/HCPCS: 80053; 80061; 82652; 82728; 83036; 83540; 83550; 84439; 84443; 85025

== ENCOUNTER → 2020-01-10 | Outpatient (CLI) | payer OTHER | END | disposition home or self-care (01) | LOC: LAB 15:11 | PROVIDERS: ATTEND Internal Medicine Cardiovascular Disease | DX: Z20.828 Contact with and (suspected) exposure to other viral communicable diseases (principal) | CPT/HCPCS: U0003-CS ==

== ENCOUNTER 2020-02-13 12:26 | Emergency (ER) | payer OTHER ==
[~2020-02-13] VITALS: Ht 165.1 cm; Wt 69.5 kg
[2020-02-13 13:19] VITALS: BP 136/84
--- NOTE | 2020-02-13 13:43 | PHYS DOC ---
Past History Past Medical History: Anxiety, Arthritis, Depression, Hypertension, Hypothyroid, Other Past Surgical History: Other Alcohol Use: Occasionally Drug Use: None General Adult EDM: Chief Complaint: ANIMAL BITE HPI: HPI: 54-year-old female presents with dog bite. Her dogs got into a fight with the neighbors dog when she went to break it up. She states that she was bit by her dog. She has superficial tavarez on her hands except for her right index finger on the palmar side which has a 1.5 cm laceration. Her last tetanus was 3 years ago. She denies any other injuries or complaints at this time. Review of Systems: Review of Systems: Constitutional: Denies fever or chills Eyes: Denies change in visual acuity HENT: Denies nasal congestion or sore throat Respiratory: Denies cough or shortness of breath Cardiovascular: Denies chest pain or edema GI: Denies abdominal pain, nausea, vomiting, bloody stools or diarrhea : Denies dysuria Musculoskeletal: Abrasions, lacerations Integument: Denies rash Neurologic: Denies headache, focal weakness or sensory changes Endocrine: Denies polyuria or polydipsia Lymphatic: Denies swollen glands Psychiatric: Denies depression or anxiety Allergies: Allergies: Allergies Coded Allergies Type Severity Reaction Last Updated Verified No Known Drug Allergies 11/01/14 No Physical Exam: PE: Constitutional: Well developed, well nourished, no acute distress, non-toxic appearance. [] HENT: Normocephalic, atraumatic, bilateral external ears normal, oropharynx [address], no oral exudates, nose normal. [] Eyes: PERRLA, EOMI, conjunctiva normal, no discharge. [] Neck: Normal range of motion, no tenderness, supple, no stridor. [] Cardiovascular:Heart rate regular rhythm, no murmur [] Lungs & Thorax: Bilateral breath sounds clear to auscultation [] Abdomen: Bowel sounds normal, soft, no tenderness, no masses, no pulsatile masses. [] Skin: Multiple abrasions of the bilateral hands consistent with dog bites or scratches. 1.5 cm linear laceration of the right index finger palmar side near PIP. [] Back: No tenderness, no CVA tenderness. [] Extremities: No tenderness, no cyanosis, no clubbing, ROM intact, no edema. [] Neurologic: Alert and oriented X 3, normal motor function, normal sensory function, no focal deficits noted. [] Psychologic: Affect normal, judgement normal, mood normal. [] EKG: EKG: [] Radiology/Procedures: Radiology/Procedures: [] Heart Score: Risk Factors: Risk Factors: DM, Current or recent (<one month) smoker, HTN, HLP, family history of CAD, obesity. Risk Scores: Score 0 - 3: 2.5% MACE over next 6 weeks - Discharge Home Score 4 - 6: 20.3% MACE over next 6 weeks - Admit for Clinical Observation Score 7 - 10: 72.7% MACE over next 6 weeks - Early Invasive Strategies Course & Med Decision Making: Course & Med Decision Making Pertinent Labs and Imaging studies reviewed. (See chart for details) Most of the patient's wounds are superficial. She did have a laceration that needed repaired. See note below for details of the repair. I will place her on Augmentin for 7 days prophylaxis. She is stable for discharge at this time. [] Dragon Disclaimer: Dragon Disclaimer: This electronic medical record was generated, in whole or in part, using a voice recognition dictation system. Laceration Repair Lac Repair Indication: [] 1.5 cm linear laceration Procedure: The patient gave me verbal consent for suture repair of her laceration. Wound was cleaned with normal saline. No foreign bodies were found. The wound was anesthetized with 1% lidocaine without epinephrine. A total of 1.5 cc was used. The wound was closed with 4-0 Ethilon suture. There were 3 stitches in interrupted fashion. There is good skin approximation. The bleeding was controlled. Nonadherent pad and finger splint were applied. The patient's tetanus is up-to-date. Total repaired wound length: 1.5 Other Items: None The patient tolerated the procedure well. Complications: None Departure Departure: Impression: Primary Impression: Dog bite Qualified Codes: W54.0XXA - Bitten by dog, initial encounter Additional Impression: Laceration of right index finger Qualified Codes: S61.210A - Laceration without foreign body of right index finger without damage to nail, initial encounter Disposition: 01 DC HOME SELF CARE/HOMELESS Condition: STABLE Referrals: RITA RESTREPO (PCP) Patient Instructions: Animal Bite, [id number] Scripts Amoxicillin/Potassium Clav (AUGMENTIN 875-125 TABLET) 1 Each Tablet 1 TAB PO BID for dog bite for 7 Days, #14 TAB 0 Refills Prov: MAUREEN BOURNE DO 02/13/20 MAUREEN BOURNE DO Feb 13, 2020 13:43
--- NOTE | 2020-02-13 13:47 | NUR ---
ANIMAL CONTROL NOTIFIED OF ANIMAL BITE. AN OFFICER WAS DISPATCHED TO THE ER.
[2020-02-13] MEDS ORDERED: AMOX1TAB61 PO (15:01)
== END 2020-02-13 15:17 | disposition home or self-care (01) ==
LOC: ER 12:26
DX: S61.210A Laceration without foreign body of right index finger without damage to nail, initial encounter (principal); S60.512A Abrasion of left hand, initial encounter; M19.90 Unspecified osteoarthritis, unspecified site; I10 Essential (primary) hypertension; E03.9 Hypothyroidism, unspecified; W54.0XXA Bitten by dog, initial encounter; Y93.89 Activity, other specified; Y92.89 Other specified places as the place of occurrence of the external cause; Y99.8 Other external cause status
CPT/HCPCS: 12001; 99283

== ENCOUNTER → 2020-02-29 | Outpatient (CLI) | payer OTHER ==
[2020-02-13 13:19] VITALS: BP 136/84
[~2020-02-29] MED LIST changes: +AMOX1TAB61 PO
== END ==
LOC: LAB 03:31
PROVIDERS: ATTEND Internal Medicine Cardiovascular Disease
DX: R05 Cough (principal); Z20.828 Contact with and (suspected) exposure to other viral communicable diseases
CPT/HCPCS: U0003

== ENCOUNTER → 2020-03-08 | Outpatient (CLI) | payer OTHER ==
[2020-02-13 13:19] VITALS: BP 136/84
== END ==
LOC: LAB 15:21
PROVIDERS: ATTEND Internal Medicine Cardiovascular Disease
DX: Z20.828 Contact with and (suspected) exposure to other viral communicable diseases (principal)
CPT/HCPCS: U0003

== ENCOUNTER → 2020-03-25 | Outpatient (CLI) | payer OTHER | LOC: LAB 16:59 | PROVIDERS: ATTEND Internal Medicine Cardiovascular Disease | DX: Z20.828 Contact with and (suspected) exposure to other viral communicable diseases (principal) | CPT/HCPCS: U0003 ==

== ENCOUNTER → 2020-05-10 | Outpatient (CLI) | payer OTHER ==
[2020-05-10 08:17] LABS: BILIRUBIN,URINE NEG (NEG); CLARITY,URINE CLOUDY; COLOR,URINE YELLOW; GLUCOSE,URINE NEG (NEG)
[2020-05-10 08:18] LABS: BACTERIA,URINE MANY /HPF (0-FEW); NITRITE,URINE POS (NEG); RBC,URINE OCC /HPF (0-2); SQUAMOUS EPITHELIAL CELL,UR MANY /LPF; UROBILINOGEN,URINE 0.2 mg/dL (0.2 mg/dL); WBC,URINE 20-40 /HPF (0-4)
== END ==
LOC: LAB 01:57
PROVIDERS: ATTEND Internal Medicine
DX: R82.71 Bacteriuria (principal)
CPT/HCPCS: 81001; 87086

== ENCOUNTER → 2020-05-31 | Outpatient (CLI) | payer OTHER ==
--- NOTE | 2020-05-31 17:06 | RAD ---
XR FOOT_LEFT 3 VIEWS 05/31/2020 4:47 PM INDICATION: Left foot pain COMPARISON: None available. TECHNIQUE: 3 views the left foot are provided. FINDINGS/ IMPRESSION: 1. There is obliquely artifact involving the middle phalanx of the fifth digit which is nondisplaced. There may be intra-articular extension to the distal interphalangeal joint which may be partly fused . Regional soft tissue swelling. 2. No radiopaque foreign density. No subcutaneous gas or osseous erosion. Electronically signed by: Jimena Alcantar MD (05/31/2020 5:04 PM) [facility]
== END ==
LOC: URGCARE 16:36
PROVIDERS: ATTEND Nurse Practitioner Family
DX: M79.672 Pain in left foot (principal); M79.89 Other specified soft tissue disorders
CPT/HCPCS: 73630

== ENCOUNTER → 2020-11-16 | Outpatient (CLI) | payer OTHER | LOC: LAB 06:07 | PROVIDERS: ATTEND Internal Medicine Cardiovascular Disease | DX: Z20.822 Contact with and (suspected) exposure to COVID-19 (principal) | CPT/HCPCS: U0003 ==

== ENCOUNTER → 2020-11-22 | Outpatient (CLI) | payer OTHER | LOC: LAB 08:16 | PROVIDERS: ATTEND Internal Medicine Cardiovascular Disease | DX: Z20.822 Contact with and (suspected) exposure to COVID-19 (principal) | CPT/HCPCS: U0005 ==

== ENCOUNTER → 2020-11-29 | Outpatient (CLI) | payer OTHER | LOC: LAB 08:06 | PROVIDERS: ATTEND Internal Medicine Cardiovascular Disease | DX: Z20.822 Contact with and (suspected) exposure to COVID-19 (principal) | CPT/HCPCS: U0003 ==

== ENCOUNTER → 2020-12-14 | Outpatient (CLI) | payer OTHER ==
[2020-12-15 19:15] VITALS: BP 152/82
== END ==
LOC: LAB 05:55
PROVIDERS: ATTEND Internal Medicine Cardiovascular Disease
DX: Z20.822 Contact with and (suspected) exposure to COVID-19 (principal)
CPT/HCPCS: C9803; U0003

== ENCOUNTER 2020-12-15 17:42 | Emergency (ER) | payer OTHER ==
[~2020-12-15] VITALS: Ht 165.1 cm; Wt 73.5 kg
[2020-12-15] MEDS ORDERED: HYDROcodone/APAP 5/325MG 1 TAB TABLET PO ONE (18:15)
--- NOTE | 2020-12-15 18:18 | PHYS DOC ---
Past History Past Medical History: Hypertension, Hypothyroid (LENNY AYALA APRN) Past Surgical History: Other Additional Past Surgical Histo: NECK (LENNY AYALA APRN) Alcohol Use: Occasionally Drug Use: None (LENNY AYALA APRN) General Adult EDM: Chief Complaint: MECHANICAL FALL HPI: HPI: Patient is a 55-year-old female who presents to the ER following a fall. Patient is complaining of occipital head pain, nose pain, left hand pain. She denies loss of consciousness. She does not take blood thinners. Patient rates pain 7 out of 10. She has been applying ice and took Aleve prior to arrival. Patient is up-to-date on her tetanus. She denies any lightheadedness, nausea, vomiting. (LENNY AYALA APRN) Review of Systems: Review of Systems: 14 body systems of the review of systems have been reviewed. See HPI for pertinent positive and negative responses, otherwise all other systems are negative, nonpertinent or noncontributory (LENNY AYALA APRN) Allergies: Allergies: Allergies Coded Allergies Type Severity Reaction Last Updated Verified No Known Drug Allergies 11/01/14 No (LENNY AYALA APRN) Physical Exam: PE: Constitutional: Well developed, well nourished, no acute distress, non-toxic appearance. [] HENT: Normocephalic, bilateral external ears normal, oropharynx moist, no oral exudates, no broken teeth, abrasion noted to bridge of nose, no periorbital ecchymosis Eyes: PERRL, EOMI, conjunctiva normal, no discharge. [] Neck: Normal range of motion, no bony cervical spinal tenderness, supple, no stridor. [] Cardiovascular:Heart rate regular rhythm, no murmur [] Lungs & Thorax: Bilateral breath sounds clear to auscultation [] Abdomen: Bowel sounds normal, soft, no tenderness, no masses, no pulsatile masses. [] Skin: Warm, dry, no erythema, no rash. [] Back: No bony spinal tenderness, normal range of motion Extremities: No tenderness, no cyanosis, no clubbing, ROM intact, no edema. Lef t knee: Abrasion noted to anterior aspect of left knee, no swelling, range of motion intact, neuro intact. Left hand: [] Mild swelling noted to ulnar aspect of dorsal hand proximal to fifth metacarpal, range of motion intact, neuro intact, no wounds. Neurologic: Alert and oriented X 3, normal motor function, normal sensory function, no focal deficits noted. [] Psychologic: Affect normal, judgement normal, mood normal. [] (LENNY AYALA APRN) Current Patient Data: Vital Signs: Vital Signs Date Time Temp Pulse Resp B/P (MAP) Pulse Ox O2 Delivery O2 Flow Rate FiO2 12/15/20 17:50 97.7 90 20 153/87 99 Room Air (LENNY AYALA APRN) EKG: EKG: [] (LENNY AYALA APRN) Radiology/Procedures: Radiology/Procedures: PROCEDURE: HAND LEFT 3V Exam: Left hand 3 views INDICATION: Fall, fifth finger pain TECHNIQUE: Frontal, lateral and oblique views of the left hand Comparisons: None FINDINGS: Bone mineralization is normal. No acute or healed fractures. Soft tissues are unremarkable. Joint spaces are well-maintained. IMPRESSION: No acute osseous abnormality Electronically signed by: Shonna Franz MD (12/15/2020 6:59 PM) [facility] DICTATED AND SIGNED BY: SHONNA FRANZ MD DATE: 12/15/201857 CC: LENNY AYALA APRN; RITA RESTREPO ~MTH0 0 []REASON: fall, c/o head pain, possible nasal fracture PROCEDURE: CT HEAD AND MAXILLOFACIAL WO Exam: CT head and maxillofacial without contrast INDICATION: Fall, head TECHNIQUE: Sequential axial images through the head and face were obtained without the administration of IV contrast. Exposure: One or more of the following in the visualized dose reduction techniques were utilized for this examination: 1. Automated exposure control 2. Adjustment of the MA and/or KV according to patient size 3. Use of iterative of reconstructive technique Comparisons: None FINDINGS: Head: No focal parenchymal lesion or hemorrhage is identified. There is no midline shift or sulcal effacement. No acute vascular territory infarction is identified. Garduno-white distinction is preserved. The ventricular system is within normal limits without compression hydrocephalus. The basal cisterns are well maintained. Face: Globes and intraorbital contents are normal. The visualized portions of the paranasal sinuses and mastoid air cells are well-pneumatized. No acute fractures. IMPRESSION: 1. No acute intracranial abnormality. 2. No acute traumatic injury at the face. Electronically signed by: Shonna Franz MD (12/15/2020 7:07 PM) [facility] DICTATED AND SIGNED BY: SHONNA FRANZ MD DATE: 12/15/201901 CC: LENNY AYALA APRN; RITA RESTREPO ~MTH0 0 (LENNY AYALA APRN) Heart Score: C/O Chest Pain: No Risk Factors: Risk Factors: DM, Current or recent (<one month) smoker, HTN, HLP, family history of CAD, obesity. Risk Scores: Score 0 - 3: 2.5% MACE over next 6 weeks - Discharge Home Score 4 - 6: 20.3% MACE over next 6 weeks - Admit for Clinical Observation Score 7 - 10: 72.7% MACE over next 6 weeks - Early Invasive Strategies (LENNY AYALA APRN) Course & Med Decision Making: Course & Med Decision Making Pertinent Labs and Imaging studies reviewed. (See chart for details) Patient is a 55-year-old female being seen in the ER for head pain, left hand following a fall. Work-up in the ER consisted of CT scan of head maxillofacial bones as well as an x-ray of the left hand. Patient was treated for pain in the ER. ER is unremarkable. Patient advised to take Tylenol/ibuprofen for pain and apply ice. I discussed with patient all findings and diagnostic testing as well as the need to follow-up with PCP for further evaluation and treatment or return to the ER if any new or worsening symptoms. Strict return precautions were also discussed at length. Patient voiced understanding and agreement with the plan. Patient is hemodynamically stable at the time of disposition. (LENNY AYALA APRN) Course & Med Decision Making Did not see or evaluate patient. Agree with SENIOR GEOLOGIST's work-up and disposition per note. (MOY PAVON MD) Dragon Disclaimer: Dragon Disclaimer: This electronic medical record was generated, in whole or in part, using a voice recognition dictation system. (LENNY AYALA APRN) Departure Departure: Impression: Primary Impression: Fall Qualified Codes: W19.XXXA - Unspecified fall, initial encounter Additional Impression: Head injury Qualified Codes: S09.90XA - Unspecified injury of head, initial encounter Disposition: HOME / SELF CARE / HOMELESS Condition: GOOD Referrals: RITA RESTREPO (PCP) Patient Instructions: Head Injury, Adult Additional Instructions: You were seen in the ER following a fall. Your work-up in the ER was unremarkable and your x-rays were negative for any acute findings. Please take Tylenol/ibuprofen for pain and apply ice. Follow-up with your primary care provider regarding your ER visit. If you develop confusion, lethargy, vision changes, lightheadedness/dizziness, intractable nausea or vomiting or worsening of your pain please return to the ER immediately. EMERGENCY DEPARTMENT GENERAL DISCHARGE INSTRUCTIONS Thank you for coming to [facility] (ED) today and trusting us with you care. We trust that you had a positivie experience in our Emergency Department. If you wish to speak to the department management, you may call the director at [phone]. YOUR FOLLOW UP INSTRUCTIONS ARE FOLLOWS: 1. Do you have a private Doctor? If you do not have a private doctor, please ask for a resource list of physicians or clinics that may be able to assist you with follow up care. 2. The Emergency Physician has interpreted your x-rays. The X-Ray specialist will also review them. If there is a change in the findings, you will be notified in 48 hours when at all possible. 3. A lab test or culture has been done, your results will be reviewed and you will be notified if you need a change in treatment. ADDITIONAL INSTRUCTIONS AND INFORMATION: 1. Your care today has been supervised by a physician who is specially trained in emergency care. Many problems require more than one evaluation for a complete diagnosis and treatment. We recommend that you schedule your follow up appointment as recommended to ensure complete treatment of you illness or injury. If you are unable to obtain follow up care and continue to have a problem, or if your condition worsens, we recommend that you return to the ED. 2. We are not able to safely determine your condition over the phone nor are we able to give sound medical advice over the phone. For these safety reasons, if you call for medical advice we will ask you to come to the ED for further evaluation. 3. If you have any questions regarding these discharge instructions please call the ED at [phone]. SAFETY INFORMATION: In the interest of safety, wellness, and injury prevention; we encourage you to wear your sealbelt, if you smoke; quite smoking, and we encourage family to use a protective helmet for bicycling and other sporting events that present an increased risk for head injury. IF YOUR SYMPTOMS WORSEN OR NEW SYMPTOMS DEVELOP, OR YOU HAVE CONCERNS ABOUT YOUR CONDITION; OR IF YOUR CONDITION WORSENS WHILE YOU ARE WAITING FOR YOUR FOLLOW UP APPOINTMENT; EITHER CONTACT YOUR PRIMARY CARE DOCTOR, THE PHYSICIAN WHOSE NAME AND NUMBER YOU WERE GIVEN, OR RETURN TO THE ED IMMEDIATELY. LENNY AYALA APRN Dec 15, 2020 18:18 MOY PAVON MD Dec 15, 2020 20:15
--- NOTE | 2020-12-15 19:02 | RAD ---
Exam: Left hand 3 views INDICATION: Fall, fifth finger pain TECHNIQUE: Frontal, lateral and oblique views of the left hand Comparisons: None FINDINGS: Bone mineralization is normal. No acute or healed fractures. Soft tissues are unremarkable. Joint [facility] are well-maintained. IMPRESSION: No acute osseous abnormality Electronically signed by: Shonna Dong MD (12/15/2020 6:59 PM) [facility]
--- NOTE | 2020-12-15 19:09 | RAD ---
Exam: CT head and maxillofacial without contrast INDICATION: Fall, head TECHNIQUE: Sequential axial images through the head and face were obtained without the administration of IV contrast. Exposure: One or more of the following in the visualized dose reduction techniques were utilized for this examination: 1. Automated exposure control 2. Adjustment of the MA and/or KV according to patient size 3. Use of iterative of reconstructive technique Comparisons: None FINDINGS: Head: No focal parenchymal lesion or hemorrhage is identified. There is no midline shift or sulcal effaceme nt. No acute vascular territory infarction is identified. [place]-white distinction is preserved. The ventricular system is within normal limits without compression hydrocephalus. The basal cisterns are well maintained. Face: Globes and intraorbital contents are normal. The visualized portions of the paranasal sinuses and mas toid air cells are well-pneumatized. No acute fractures. IMPRESSION: 1. No acute intracranial abnormality. 2. No acute traumatic injury at the face. Electronically signed by: Shonna Dong MD (12/15/2020 7:07 PM) COURTNEY
[2020-12-15 19:15] VITALS: BP 152/82
== END 2020-12-15 19:15 | disposition home or self-care (01) ==
LOC: ER 17:42
DX: S09.8XXA Other specified injuries of head, initial encounter (principal); W18.39XA Other fall on same level, initial encounter; Y93.89 Activity, other specified; Y92.89 Other specified places as the place of occurrence of the external cause; Y99.8 Other external cause status
CPT/HCPCS: 70450; 70486; 73130; 99284-25

== ENCOUNTER → 2020-12-20 | Outpatient (CLI) | payer OTHER ==
[2020-12-15 19:15] VITALS: BP 152/82
== END ==
LOC: LAB 06:43
PROVIDERS: ATTEND Internal Medicine Cardiovascular Disease
DX: Z20.822 Contact with and (suspected) exposure to COVID-19 (principal)
CPT/HCPCS: U0003

== ENCOUNTER → 2020-12-28 | Outpatient (CLI) | payer OTHER ==
[2020-12-15 19:15] VITALS: BP 152/82
== END ==
LOC: LAB 05:30
PROVIDERS: ATTEND Internal Medicine Cardiovascular Disease
DX: Z20.822 Contact with and (suspected) exposure to COVID-19 (principal)
CPT/HCPCS: C9803; U0003

== ENCOUNTER → 2021-01-17 | Outpatient (CLI) | payer OTHER | LOC: LAB 05:45 | PROVIDERS: ATTEND Internal Medicine Cardiovascular Disease | DX: Z20.822 Contact with and (suspected) exposure to COVID-19 (principal) | CPT/HCPCS: U0003 ==

== ENCOUNTER → 2021-01-24 | Outpatient (CLI) | payer OTHER | LOC: LAB 07:46 | PROVIDERS: ATTEND Internal Medicine Cardiovascular Disease | DX: Z20.822 Contact with and (suspected) exposure to COVID-19 (principal) | CPT/HCPCS: U0003 ==

== ENCOUNTER → 2021-02-04 | Outpatient (CLI) | payer OTHER ==
[~2021-02-04] MED LIST changes: +BUPR300T3 PO; +LEVO50TA PO; +OMEP20CA16 PO; +TAMOXIFEN PO; +amlodipine PO; +strattera; +xanax
== END ==
LOC: SPEC 19:09
PROVIDERS: ATTEND Internal Medicine Cardiovascular Disease
DX: R05.9 Cough, unspecified (principal); R51.9 Headache, unspecified; R09.81 Nasal congestion; J02.9 Acute pharyngitis, unspecified; R43.0 Anosmia; R53.81 Other malaise; Z20.822 Contact with and (suspected) exposure to COVID-19
CPT/HCPCS: U0003

== ENCOUNTER → 2021-02-06 | Outpatient (CLI) | payer OTHER | LOC: LAB 07:03 | PROVIDERS: ATTEND Internal Medicine Cardiovascular Disease | DX: Z20.822 Contact with and (suspected) exposure to COVID-19 (principal) | CPT/HCPCS: U0003 ==

== ENCOUNTER → 2021-02-11 | Day surgery (SDC) | payer OTHER ==
[~2021-02-11] MED LIST changes: +EPINEPHrine 30 MG/30 ML VIAL ONE; +GELATIN SPONGE SIZE 12-7MM SPONGE. ONE; +IPRATRPIUM/ALBUTEROL 0.5/2.5MG 3 ML NEBU. NEB PRN; +LIDOCAINE 1%/EPI 1:100,000 20 ML VIAL. ONE; +MIDAZOLAM HCL PF 2 MG/2 ML VIAL. IV ONE; +NEOMY/BACITR/POLYMYXIN OINT PACKET. TP ONE; +ONDANSETRON PF 4 MG/2 ML VIAL. IV PRN; +OXYMETAZOLINE 0.05% NASAL SPRAY 30ML BOTTLE. NS ONE; +SCOPOLAMINE 1.5MG PATCH. TD ONE; +SUCCINYLCHOLINE 200 MG/10 ML VIAL. ONE; +ceFAZolin SODIUM 2 GM in IV DEXTROSE 5% 50 ML IV ONE
[2021-02-11] MEDS: IV RINGERS SOLUTION,LACTATED 1,000 ML IV SCH (08:09)
[2021-02-11] MEDS: LIDOCAINE 1%/EPI 1:100,000 20 ML VIAL. IJ ONE (09:06)
[2021-02-11] MEDS: OXYMETAZOLINE 0.05% NASAL SPRAY 30ML BOTTLE. NS ONE (09:07)
[2021-02-11] MEDS: GELATIN SPONGE SIZE 12-7MM SPONGE. ONE (09:08)
[2021-02-11 11:14] VITALS: BP 144/88
--- NOTE | 2021-02-11 14:23 | OP ---
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 PROCEDURE PERFORMED: Nasal septoplasty and radiofrequency reduction of inferior nasal turbinates. INDICATIONS FOR THE PROCEDURE: Post-traumatic injury to the nose, which developed a deviation of the nasal septum causing nasal obstruction and inferior turbinate hypertrophy was associated. ANESTHESIA: General anesthetic. BLOOD LOSS: Estimated at 10-15 mL. DESCRIPTION OF PROCEDURE: The patient was brought to the operating room, placed on the operating room table in supine position and she was given a general anesthetic. When her airway was safe and secure, the table was rotated 90 degrees. Her nose was then examined, recognizing the distinct displacement of the nasal septum into the left side of the nasal passage with distortion of the caudal portion of the septum. The nose was then cleaned using topical Betadine and the face was prepped and draped. The septum was then infiltrated with 1% lidocaine with epinephrine and the nose was decongested using cottonoids containing topical adrenaline. A careful incision was made in [place] style posterior to the dominant cartilaginous deformity. Careful dissection was carried down beneath the mucoperichondrium advancing it forward over the distorted portion of the septum, freeing up the caudal portion of the cartilage and also the floor of the nasal septum as it was attached in the region of attachment to the premaxillary crest. With this mobilization, careful removal of a portion of the distorted cartilaginous septum within the premaxillary crest was accomplished permitting movement into a midline position. The alar cartilage though was then released from associated tissue to allow it to also become more midline, reducing the adhesive tissue and creating a more careful and smooth position. Attention was then given to the just deformed cartilaginous portion. The cartilage was carefully excised as needed along with scoring to give the cartilage more flexible abilities and it moved to midline. A crossover incision had been created and mucoperichondrial elevation posteriorly was accomplished; however, there was no need to correct cartilage in this region, it was uninvolved. Then, careful adjustment of the soft tissue revealed that the lower lateral cartilage had moved to a midline position with the previous bossing absent that the septal cartilage was now in a midline position. The elevated mucosal flaps were then carefully re-approximated and sutured in position using 4-0 chromic suture. The inferior turbinates had been previously noted to be enlarged, 1-2 mL of saline was injected into the anterior 1/3rd on each side and then it was treated with Coblation radiofrequency and that resulted in contraction of the inferior turbinate to improve nasal airflow. The nose was then irrigated and suctioned. All tissues that were managed were in the midline position, a suture was secured. The nose was then packed with Gelfoam and the procedure was completed. The patient was recovered from her anesthesia and taken to recovery room in stable condition. FLORES DR: Eliceo TID: [id number]
== END | disposition home or self-care (01) ==
LOC: SURG 07:27
PROVIDERS: ATTEND Otolaryngology
DX: J34.2 Deviated nasal septum (principal); J34.3 Hypertrophy of nasal turbinates; K21.00 Gastro-esophageal reflux disease with esophagitis, without bleeding; Z87.891 Personal history of nicotine dependence; Z79.899 Other long term (current) drug therapy; Z98.890 Other specified postprocedural states; Z72.89 Other problems related to lifestyle
CPT/HCPCS: 30520; 30802; J0171; J0330; J0690; J2250; J3010; J7120; A4215; A4216; A4657; A4927; A4930

== ENCOUNTER → 2021-02-18 | Outpatient (CLI) | payer OTHER ==
[2021-02-11 11:14] VITALS: BP 144/88
[~2021-02-18] MED LIST changes: -CYCL-331 PO; +CYCL10TA19 PO; -EPINEPHrine 30 MG/30 ML VIAL ONE; -GELATIN SPONGE SIZE 12-7MM SPONGE. ONE; -IPRATRPIUM/ALBUTEROL 0.5/2.5MG 3 ML NEBU. NEB PRN; -LIDOCAINE 1%/EPI 1:100,000 20 ML VIAL. ONE; -MIDAZOLAM HCL PF 2 MG/2 ML VIAL. IV ONE; -NEOMY/BACITR/POLYMYXIN OINT PACKET. TP ONE; -ONDANSETRON PF 4 MG/2 ML VIAL. IV PRN; -OXYMETAZOLINE 0.05% NASAL SPRAY 30ML BOTTLE. NS ONE; -SCOPOLAMINE 1.5MG PATCH. TD ONE; -SUCCINYLCHOLINE 200 MG/10 ML VIAL. ONE; -ceFAZolin SODIUM 2 GM in IV DEXTROSE 5% 50 ML IV ONE
== END ==
LOC: LAB 04:55
PROVIDERS: ATTEND Internal Medicine Cardiovascular Disease
DX: Z20.822 Contact with and (suspected) exposure to COVID-19 (principal)
CPT/HCPCS: C9803; U0003

== ENCOUNTER → 2021-02-24 | Outpatient (CLI) | payer OTHER ==
[2021-02-11 11:14] VITALS: BP 144/88
== END ==
LOC: LAB 00:13
PROVIDERS: ATTEND Internal Medicine Cardiovascular Disease
DX: Z20.822 Contact with and (suspected) exposure to COVID-19 (principal)
CPT/HCPCS: U0003

== ENCOUNTER → 2021-03-04 | Outpatient (CLI) | payer OTHER ==
[2021-02-11 11:14] VITALS: BP 144/88
--- NOTE | 2021-03-05 08:08 | RAD ---
EXAM: AP, lateral and lumbosacral spot views with bilateral oblique views of the lumbar spine DATE: 03/04/2021 4:11 PM INDICATION: Reason: ACUTE BILATERAL LOW BACK PAIN / Spl. Instructions: / History: COMPARISON: No Prior FINDINGS: 5 nonrib-bearing lumbar-type vertebral bodies. Vertebral body heights are preserved. Moderate L5-S1 d isc height loss. 1 cm anterolisthesis of L5 on S1. Bilateral L5 pars defects are seen. Moderate colonic stool content. IMPRESSION: 1. Bilateral L5 pars defects with 1 cm anterolisthesis of L5 on S1. 2. No evidence for acute fracture. 3. Moderate L5-S1 disc height loss. Electronically signed by: Maurice Fairbanks MD (03/05/2021 8:05 AM) [id number]
== END ==
LOC: RAD 16:02
PROVIDERS: ATTEND Nurse Practitioner Family
DX: M43.17 Spondylolisthesis, lumbosacral region (principal); M51.37 Other intervertebral disc degeneration, lumbosacral region
CPT/HCPCS: 72110

== ENCOUNTER → 2021-03-12 | Outpatient (CLI) | payer OTHER ==
[2021-02-11 11:14] VITALS: BP 144/88
== END ==
LOC: LAB 05:55
PROVIDERS: ATTEND Internal Medicine Cardiovascular Disease
DX: Z20.822 Contact with and (suspected) exposure to COVID-19 (principal)
CPT/HCPCS: C9803; U0003

== ENCOUNTER → 2021-03-20 | Outpatient (CLI) | payer OTHER ==
[2021-02-11 11:14] VITALS: BP 144/88
== END ==
LOC: LAB 10:23
PROVIDERS: ATTEND Internal Medicine Cardiovascular Disease
DX: Z20.822 Contact with and (suspected) exposure to COVID-19 (principal)
CPT/HCPCS: U0003

== ENCOUNTER → 2021-04-01 | Outpatient (CLI) | payer OTHER ==
[2021-02-11 11:14] VITALS: BP 144/88
== END ==
LOC: LAB 04:45
PROVIDERS: ATTEND Internal Medicine Cardiovascular Disease
DX: Z20.822 Contact with and (suspected) exposure to COVID-19 (principal)
CPT/HCPCS: C9803; U0003

== ENCOUNTER → 2021-04-10 | Outpatient (CLI) | payer OTHER ==
[2021-02-11 11:14] VITALS: BP 144/88
== END ==
LOC: LAB 14:03
PROVIDERS: ATTEND Internal Medicine Cardiovascular Disease
DX: Z20.822 Contact with and (suspected) exposure to COVID-19 (principal)
CPT/HCPCS: U0003

== ENCOUNTER → 2021-04-18 | Outpatient (CLI) | payer OTHER ==
[2021-02-11 11:14] VITALS: BP 144/88
== END ==
LOC: LAB 05:30
PROVIDERS: ATTEND Internal Medicine Cardiovascular Disease
DX: Z20.822 Contact with and (suspected) exposure to COVID-19 (principal)
CPT/HCPCS: C9803; U0003

== ENCOUNTER → 2021-05-09 | Outpatient (CLI) | payer OTHER ==
[2021-02-11 11:14] VITALS: BP 144/88
== END ==
LOC: LAB 07:00
PROVIDERS: ATTEND Internal Medicine Cardiovascular Disease
DX: Z20.822 Contact with and (suspected) exposure to COVID-19 (principal)
CPT/HCPCS: U0003

== ENCOUNTER → 2021-05-16 | Outpatient (CLI) | payer OTHER ==
[2021-02-11 11:14] VITALS: BP 144/88
== END ==
LOC: LAB 07:00
PROVIDERS: ATTEND Internal Medicine Cardiovascular Disease
DX: Z20.822 Contact with and (suspected) exposure to COVID-19 (principal)
CPT/HCPCS: U0003

== ENCOUNTER → 2021-05-22 | Outpatient (CLI) | payer OTHER ==
[2021-02-11 11:14] VITALS: BP 144/88
== END ==
LOC: LAB 07:00
PROVIDERS: ATTEND Internal Medicine Cardiovascular Disease
DX: Z20.822 Contact with and (suspected) exposure to COVID-19 (principal)
CPT/HCPCS: U0003

== ENCOUNTER → 2021-05-29 | Outpatient (CLI) | payer OTHER ==
[2021-02-11 11:14] VITALS: BP 144/88
== END ==
LOC: LAB 11:34
PROVIDERS: ATTEND Internal Medicine Cardiovascular Disease
DX: Z20.822 Contact with and (suspected) exposure to COVID-19 (principal)
CPT/HCPCS: U0003

== ENCOUNTER → 2021-06-28 | Outpatient (CLI) | payer OTHER ==
[2021-02-11 11:14] VITALS: BP 144/88
[2021-06-28 11:57] LABS: BASO % 1 % (0-3); EOS # 0.3 x10^3/uL (0.0-0.7); EOS % 3 % (0-3); HEMATOCRIT 42.5 % (36.0-47.0); HEMOGLOBIN 13.9 g/dL (12.0-15.5); LYMPH # 3.1 x10^3/uL (1.0-4.8); LYMPH % 36 % (24-48); MEAN CORPUSCULAR HEMOGLOBIN 29 pg (25-35); MEAN CORPUSCULAR HGB CONC 33 g/dL (31-37); MEAN CORPUSCULAR VOLUME 89 fL (79-100); MONO # 0.7 x10^3/uL (0.0-1.1); MONO % 8 % (0-9); NEUT # 4.4 x10^3uL (1.8-7.7); NEUT % 52 % (31-73); PLATELET COUNT 214 x10^3/uL (140-400); RED BLOOD COUNT 4.81 x10^6/uL (3.50-5.40); RED CELL DISTRIBUTION WIDTH 13.8 % (11.5-14.5); WHITE BLOOD COUNT 8.4 x10^3/uL (4.0-11.0)
[2021-06-28 12:07] LABS: ALBUMIN/GLOBULIN RATIO 1.3 (1.0-1.7); CALCIUM 9.1 mg/dL (8.5-10.1); CREATININE 0.7 mg/dL (0.6-1.0); GFR 86.9; POTASSIUM 3.7 mmol/L (3.5-5.1); TOTAL BILIRUBIN 0.3 mg/dL (0.2-1.0)
[2021-06-28 19:21] LABS: CHOLESTEROL/HDL RATIO 3.3; FREE T4 0.99 ng/dL (0.76-1.46); THYROID STIM HORMONE (TSH) 3.661 uIU/mL (0.358-3.740)
[2021-06-29 01:07] LABS: HEMOGLOBIN A1C 5.6 % (4.8-5.6)
== END ==
LOC: LAB 10:14
PROVIDERS: ATTEND Physician Assistant Medical
DX: Z01.419 Encounter for gynecological examination (general) (routine) without abnormal findings (principal); I10 Essential (primary) hypertension; K21.9 Gastro-esophageal reflux disease without esophagitis; E03.9 Hypothyroidism, unspecified; R63.1 Polydipsia; Z78.0 Asymptomatic menopausal state
CPT/HCPCS: 36415; 80053; 80061; 82652; 83036; 84439; 84443; 85025

== ENCOUNTER → 2021-07-02 | Outpatient (CLI) | payer OTHER ==
[2021-02-11 11:14] VITALS: BP 144/88
== END ==
LOC: LAB 13:30
PROVIDERS: ATTEND Physician Assistant Medical
DX: Z01.419 Encounter for gynecological examination (general) (routine) without abnormal findings (principal)
CPT/HCPCS: 87623; 88175

== ENCOUNTER → 2021-07-04 | Outpatient (CLI) | payer OTHER ==
[2021-02-11 11:14] VITALS: BP 144/88
--- NOTE | 2021-07-04 12:01 | RAD ---
Bone Densitometry History: Reason: BASELINE, MENOPAUSAL / Spl. Instructions: / History: Findings: Bone Densitometry was performed with dual photon absorption of the lumbar spine and right proximal fe mur. Lumbar Spine: Bone density is 1.076 g/cm2 for L1-L4. T-score is -0.9. Z-score is -0.4. Right total femur: Bone density is 0.826 g/cm2. T-score is -1.0. Z-score is -0.6. IMPRESSION: There are low normal bone mineral densities of the lumbar spine and the right femur. World Health Organization definition of osteoporosis and osteopenia for women: normal equal s T score at or above -1.0 standard deviations; osteopenia equals T score between -1.0 and -2.5 stand christiano deviations; osteoporosis equals T score at or below -2.5 standard deviations. Electronically signed by: Jimmy Bo MD (07/04/2021 11:58 AM) [id number]
--- NOTE | 2021-07-04 12:53 | RAD ---
EXAMINATION: MG BILAT SCREEN+WENDY CLINICAL HISTORY: Screening TECHNIQUE: Digital craniocaudal and mediolateral oblique views of the bilateral breasts obtained with 3-D tomosynthesis. COMPARISON: 07/13/2015, 03/08/2014, 05/17/2013 BREAST COMPOSITION: The breasts are heterogeneously dense, which may obscure small masses. FINDINGS: No evidence of suspicious mass, calcifications, or areas of architectural distortion. Biopsy marker c lip in the superior right breast remains in similar position. IMPRESSION: No mammographic evidence of malignancy. BI-RADS ASSESSMENT: Category 2: Benign RECOMMENDATION: Return for routine bilateral screening mammogram in one year. PQRS compliance statement - Patient information was entered into a reminder system with a target due date for the next mammogram. "Our facility is accredited by the [employer] Mammography [employer]." Electronically signed by: Nikos Keenan DO (07/04/2021 12:50 PM) [id number]
== END ==
LOC: MAMMO 10:40
PROVIDERS: ATTEND Physician Assistant Medical
DX: Z12.31 Encounter for screening mammogram for malignant neoplasm of breast (principal); Z78.0 Asymptomatic menopausal state
CPT/HCPCS: 77063; 77067; 77080